=== PATIENT | female | born 2000 | race African-American/Black ===

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

== ENCOUNTER 2024-02-23 23:51 | Emergency (ER) | payer MEDICAID ==
[~2024-02-23] VITALS: Ht 182.9 cm; Wt 81.0 kg
[2024-02-24 00:16] VITALS: BP 148/90; PULSE 98; RESP 16; TEMP 98.3; O2SAT 99
[2024-02-24] MEDS ORDERED: ACET-2708 MT (02:49)
[2024-02-25] MEDS ORDERED: INSU200I SQ (14:37)
[2024-02-25] MEDS ORDERED: INSU100I28 SQ (14:37)
[2024-02-25] MEDS ORDERED: IBUP-2028 MT (14:37)
[2024-02-25] MEDS ORDERED: OMEP10CA5 PO (14:37)
[2024-02-25] MEDS ORDERED: FERR325T6 MT (14:57)
== END 2024-02-24 04:32 | disposition home or self-care (01) ==
LOC: ER 23:51
DX: S93.402A Sprain of unspecified ligament of left ankle, initial encounter (principal); E11.9 Type 2 diabetes mellitus without complications; Z79.4 Long term (current) use of insulin; X58.XXXA Exposure to other specified factors, initial encounter; Y93.89 Activity, other specified; Y92.89 Other specified places as the place of occurrence of the external cause; Y99.8 Other external cause status
CPT/HCPCS: 99283; 73610; Z7610

== ENCOUNTER 2024-03-15 17:58 | Emergency (ER) | payer SELFPAY ==
[~2024-03-15] VITALS: Ht 182.9 cm; Wt 85.0 kg
[~2024-03-15 17:58] MED LIST: ACET-2708 MT; FERR325T6 MT; IBUP-2028 MT; INSU100I28 SQ; INSU200I SQ; OMEP10CA5 PO
[2024-03-15 18:06] VITALS: O2SAT 98
[2024-03-15 19:27] LABS: BASOPHILS % 0.4 % (0.0-2.0); EOSINOPHILS % 0.9 % (0.0-5.0); HEMATOCRIT. 34.4 % (36.0-48.0); HEMOGLOBIN. 11.1 g/dL (12.0-16.0); MEAN CORPUSCULAR HEMOGLOBIN 29.7 pg (28.0-32.0); MEAN CORPUSCULAR HGB CONC 32.3 g/dL (31.0-37.0); MEAN CORPUSCULAR VOLUME 91.7 fL (81.0-99.0); MEAN PLATELET VOLUME 9.6 fl (7.4-10.4); MONOCYTES % 6.8 % (2.0-8.0); NEUTROPHILS % 52.9 % (40.0-76.0); PLATELET 217 x1000/uL (130-400); RED BLOOD CELL COUNT 3.75 mill/uL (4.2-5.4); WHITE BLOOD COUNT 5.8 x1000/uL (4.5-11.0)
[2024-03-15 19:31] LABS: CHLORIDE 101 mEq/L (98-107); POTASSIUM 4.1 mEq/L (3.5-5.1); SODIUM 131 mEq/L (136-145)
[2024-03-15 19:32] LABS: CARBON DIOXIDE 25 mEq/L (21-32)
[2024-03-15 19:33] LABS: CALCIUM 9.3 mg/dL (8.7-10.4)
[2024-03-15 19:34] LABS: HCG SCREEN NEGATIVE
[2024-03-15 19:34] LABS: CLARITY URINE CLEAR (CLEAR); COLOR URINE YELLOW (YELLOW); GLUCOSE URINE 3+ (NEGATIVE); KETONES URINE NEGATIVE (NEGATIVE); LEUKOCYTE ESTERASE URINE NEGATIVE (NEGATIVE); NITRITE URINE NEGATIVE (NEGATIVE); OCCULT BLOOD URINE 1+ (NEGATIVE); PH URINE 7.5 (4.5-8.0); PROTEIN URINE NEGATIVE (NEGATIVE); SPECIFIC GRAVITY URINE 1.033 (1.005-1.030); UROBILINOGEN URINE 0.2 E.U./dL (0.2-1.0)
[2024-03-15 19:37] LABS: CREATININE 1.1 mg/dL (0.6-1.0); UREA NITROGEN BLOOD 13 mg/dL (9-23)
[2024-03-15 19:45] LABS: GLUCOSE 488 mg/dL (70-105)
[2024-03-15 19:52] LABS: BACTERIA URINE NONE SEEN; SQUAMOUS EPITHELIAL CELL URINE RARE /lpf (RARE/1+)
[2024-03-15 19:53] LABS: YEAST URINE 1+
[2024-03-15] MEDS ORDERED: INSU200I SQ (20:08)
[2024-03-15] MEDS ORDERED: INSU100I28 SQ (20:08)
[2024-03-15] MEDS: SODIUM CHLORIDE 0.9% 1,000 ML IV ONE (20:09)
[2024-03-15] MEDS: INSULIN REGULAR (HUMULIN R) 1000UNITS/10ML VIAL IV STA (20:37)
[2024-03-15 20:45] VITALS: BP 118/70; PULSE 77; RESP 13; TEMP 97.8
== END 2024-03-15 20:46 | disposition home or self-care (01) ==
LOC: ER 17:58
DX: E11.65 Type 2 diabetes mellitus with hyperglycemia (principal); D64.9 Anemia, unspecified; Z76.0 Encounter for issue of repeat prescription
CPT/HCPCS: 80048; 81003; 82962; 84703; 85025; 36415; 96374; 99283; J1815; J7030; Z7610 ×2